=== PATIENT | male | born 1965 | race Two or more races ===

== ENCOUNTER 2019-11-29 13:54 | Emergency (ER) | payer OTHER ==
[~2019-11-29] VITALS: Ht 172.7 cm; Wt 92.5 kg
[2019-11-29] MEDS ORDERED: EPINEPHRINE (1:1000) 1 MG/ML AMPUL ONE ×2 (14:03→14:05)
[2019-11-29] MEDS ORDERED: diphenhydrAMINE HCL 50 MG/ML VIAL ONE (14:05)
[2019-11-29] MEDS ORDERED: FAMOTIDINE/PF INJ 20 MG/2 ML VIAL IV ONE ×2 (14:05→14:30)
[2019-11-29] MEDS ORDERED: methylPREDNISolone SOD SUCC 125 MG/2ML VIAL ONE (14:05)
--- NOTE | 2019-11-29 14:20 | NUR ---
LAURENT. TO ER BED 7. RAPID BREATHING BUT PATENT AIRWAY. ABLE TO TALK IN SENTENCE. BROUGHT IN FOR MULTIPLE BEE STING WHILE CUTTING A TREE. PT IS NOTED WITH FACIAL REDNESS AND SWELLING BUT AIRWAY IS PATENT, SATTING 100% ON RA. PLACED ON MONITOR. IV LINER OBTAINED ON L AC 18G. WAS AT BEDSIDE FOR EVAL. ORDERS RECEIVED NOTED AND CARRIED OUT.
[2019-11-29] MEDS ORDERED: methylPREDNISolone SOD SUCC 125 MG/2ML VIAL IV ONE (14:30)
[2019-11-29] MEDS ORDERED: diphenhydrAMINE HCL 50 MG/ML VIAL IV ONE (14:30)
[2019-11-29] MEDS ORDERED: EPINEPHRINE (1:1000) MDV 30 MG/30ML VIAL SUBCUT ONE (14:30)
--- NOTE | 2019-11-29 17:24 | NUR ---
NOTED SWELLING HAVE SUBSIDED WELL REDNESS. NO RESP DISTRESS NOTED. NOTED BP OF 174/104. MADE AWARE. NNO
--- NOTE | 2019-11-29 18:13 | NUR ---
NO NOTED DELAYED REACTION.
--- NOTE | 2019-11-29 18:14 | NUR ---
Patient discharged to home in stable condition. Written and verbal after care instructions given. Patient verbalizes understanding of instruction.IV removed. Catheter intact and site benign. Pressure and 4x4 applied to site. No bleeding noted. Pt ambulatory with a steady gait
[2019-11-29 18:15] VITALS: BP 168/95
== END 2019-11-29 18:16 | disposition home or self-care (01) ==
LOC: ER 13:57
DX: T63.441A Toxic effect of venom of bees, accidental (unintentional), initial encounter (principal); T78.2XXA Anaphylactic shock, unspecified, initial encounter; R00.0 Tachycardia, unspecified; Z91.030 Bee allergy status; X58.XXXA Exposure to other specified factors, initial encounter
CPT/HCPCS: 96372; 96374; 96375; 99285; J0171 ×3; J1200; J2930; J3490; J7030